=== PATIENT | male | born 1980 | race Caucasian/White ===

== ENCOUNTER 2021-09-19 09:52 | Emergency (ER) | payer OTHER, SELFPAY ==
[2021-09-19 11:05] LABS: Absolute Lymphocytes (CBC) 1.2 K/uL (0.7-4.9); Basophils % 0.4 % (0-1.3); Hematocrit 45.6 % (39.6-49.0); Lymphocytes % 18.9 % (15.3-44.8); MPV 7.9 fL (7.6-11.3); RBC Red Blood Cell Count 5.13 M/uL (4.33-5.43)
[2021-09-19 11:28] LABS: ALT/SGPT 41 U/L (12-78); AST/SGOT 10 U/L (15-37); Albumin 4.2 g/dL (3.4-5.0); Alkaline Phosphatase 71 U/L (45-117); BUN Blood Urea Nitrogen 17 mg/dL (7-18); Bicarbonate 26 mmol/L (21-32); Bilirubin Direct 0.2 mg/dL (0-0.2); Bilirubin Total 0.7 mg/dL (0.2-1.0); Glucose Level 100 mg/dL (74-106); Lipase 99 U/L (73-393); Potassium 3.8 mmol/L (3.5-5.1); Protein, Total 8.2 g/dL (6.4-8.2); Sodium Level 140 mmol/L (136-145)
--- NOTE | 2021-09-19 12:04 | RAD REPORT ---
EXAM DESCRIPTION: CTAbdomen Pelvis W Contrast - 09/19/2021 11:50 am CLINICAL HISTORY: bloody stools COMPARISON: No comparisons TECHNIQUE: CT of the abdomen and pelvis was performed. All CT scans are performed using dose optimization technique as appropriate and may include automated exposure control or mA/KV adjustment according to patient size. FINDINGS: Lower chest: No acute abnormality. Liver: No acute abnormality or suspicious lesions. Biliary: No biliary ductal dilatation. Stomach: No significant focal abnormality. Duodenum: No significant focal abnormality. Pancreas: No significant abnormality. Spleen: No significant abnormality. Adrenal: No suspicious lesions. Kidney/ureter: No hydronephrosis. No renal calculi. Retroperitoneum: No retroperitoneal adenopathy. Vascular: No aneurysm. Bowel: No significant focal abnormality. Normal appendix. Peritoneum: No ascites or free air. Bladder: Grossly unremarkable. Reproductive: No adnexal masses. Bones: No acute fracture. Other: n/a IMPRESSION: No acute intra-abdominal or pelvic finding.
--- NOTE | 2021-09-19 12:19 | EDPHYS ---
Physician Documentation [facility] Name: Boris Ramirez Age: 40 yrs Sex: Male : 1980 Arrival Date: 09/19/2021 Time: 09:56 Bed 5 Private MD: ED Physician Jay Temple HPI: 09/19 10:30 This 40 yrs old Male presents to ER via Ambulatory with complaints of Bloody Stools. [facility] 10:30 The patient presents to the emergency department with bleeding from the rectum/anus. jmm Onset: The symptoms/episode began/occurred gradually, 3 day(s) ago. Modifying factors: The symptoms are alleviated by nothing, The symptoms are aggravated by nothing. . 10:30 Associate signs and symptoms: Pertinent positives: lower GI bleeding, Pertinent jmm negatives: fever. 10:30 This is a 40-year-old male with no known chronic medical condition presents emerged [facility] department with complaints of diarrhea beginning approximately 3 days ago with intermittent episodes of blood in his stool. Denies weakness or fatigue. Patient denies fever. Currently states his symptoms have resolved. Patient works on a boat needs clearance.. Historical: - Allergies: 10:19 No Known Allergies; jl7 - Home Meds: 10:19 None [Active]; jl7 - PMHx: 10:19 None; jl7 - Immunization history:: Client reports having NOT received the Covid vaccine. - Social history:: Smoking status: unknown. ROS: 10:30 Constitutional: Negative for fever, chills, and weight loss, Cardiovascular: Negative jmm for chest pain, palpitations, and edema, Respiratory: Negative for shortness of breath, cough, wheezing, and pleuritic chest pain. 10:30 Abdomen/GI: Positive for diarrhea. 10:30 All other systems are negative. Exam: 10:30 Constitutional: This is a well developed, well nourished patient who is awake, alert, jmm and in no acute distress. Head/Face: atraumatic. Eyes: EOMI, no conjunctival erythema appreciated ENT: Moist Mucus Membranes Neck: Trachea midline, Supple Chest/axilla: Normal chest wall appearance and motion. Cardiovascular: Regular rate and rhythm. No edema appreciated Respiratory: Normal respirations, no respiratory distress appreciated 10:30 Back: Normal ROM Skin: General appearance color normal MS/ Extremity: Moves all extremities, no obvious deformities appreciated, no edema noted to the lower extremities Neuro: Awake and alert, normal gait Psych: Behavior is normal, Mood is normal, Patient is cooperative and pleasant 10:30 Abdomen/GI: Inspection: abdomen appears normal, Bowel sounds: normal, Palpation: abdomen is soft and non-tender, in all quadrants. Vital Signs: 10:16 BP 147 / 103; Pulse 77; Resp 15; Temp 98.1(O); Pulse Ox 98% on R/A; Weight 85 kg (R); jl7 Height 6 ft. 1 in. (187 cm) (R); Pain 0/10; 11:00 BP 146 / 80; Pulse 96; Resp 18 S; Temp 98.1(O); Pulse Ox 96% on R/A; Pain 0/10; al4 11:56 BP 141 / 93; Pulse 71; Resp 18; Pulse Ox 99% ; Pain 0/10; al4 10:16 Body Mass Index 24.31 (85.00 kg, 187 cm) 7 MDM: 10:30 Patient medically screened. [facility] 12:18 Data reviewed: vital signs, nurses notes. Counseling: I had a detailed discussion with hasmukh the patient and/or guardian regarding: the historical points, exam findings, and any diagnostic results supporting the discharge/admit diagnosis, lab results, radiology results, the need for outpatient follow up, to return to the emergency department if symptoms worsen or persist or if there are any questions or concerns that arise at home. ED course: Patient is alert nontoxic in appearance in the ED. No abdominal pain on physical exam. Labs unremarkable. Patient advised to follow-up with gastroenterology for further evaluation otherwise given strict return precautions. Patient understood agrees plan of care.. 09/19 10:30 Order name: Basic Metabolic Panel; Complete Time: 11:37 [facility] 09/19 10:30 Order name: CBC with Diff; Complete Time: 11:10 [facility] 09/19 10:30 Order name: Hepatic Function; Complete Time: 11:37 [facility] 09/19 10:30 Order name: Lipase; Complete Time: 11:37 [facility] 09/19 10:30 Order name: IV Saline Lock; Complete Time: 11:06 [facility] 09/19 10:30 Order name: CT Abd/Pelvis - IV Contrast Only; Complete Time: 12:07 [facility] 09/19 10:30 Order name: Labs collected and sent; Complete Time: 11:06 jm Administered Medications: No medications were administered Disposition: 09/20 07:48 Co-signature as Attending Physician, Jay Temple MD I agree with the assessment and sp3 plan of care. Disposition Summary: 09/19/21 12:19 Discharge Ordered Location: Home jmm Condition: Stable jmm Diagnosis - Diarrhea, unspecified jmm - GI Bleed/ Gastrointestinal hemorrhage, unspecified jmm Followup: jmm - With: Ruby Ellison MD - When: 2 - 3 days - Reason: Recheck today's complaints, Continuance of care, Re-evaluation by your physician Discharge Instructions: - Discharge Summary Sheet jmm - Food Choices to Help Relieve Diarrhea, Adult jmm - Diarrhea, Adult jmm - Gastrointestinal Bleeding jm Forms: - Medication Reconciliation Form jmm - Thank You Letter jmm - Antibiotic Education jmm - Prescription Opioid Use jmm Signatures: Dispatcher [employer] EDGet Estrada PA PA jmm Leal, Jahala RN RN jl7 Jay Temple MD MD sp3
--- NOTE | 2021-09-19 12:19 | ER ---
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 It occurred 2 weeks ago as well. Pt reports having diarrhea both times, symptoms have resolved at this time. Coronavirus screen: At this time, the client does not indicate any symptoms associated with coronavirus-19. Ebola Screen: No symptoms or risks identified at this time. Initial Sepsis Screen: Does the patient meet any 2 criteria? No. Patient's initial sepsis screen is negative. Does the patient have a suspected source of infection? No. Patient's initial sepsis screen is negative. Risk Assessment: Do you want to hurt yourself or someone else? Patient reports no desire to harm self or others. Onset of symptoms is unknown. 10:16 Method Of Arrival: Ambulatory jl7 10:16 Acuity: SHEBA 3 jl7 Triage Assessment: 10:19 General: Appears in no apparent distress. uncomfortable, Behavior is calm, cooperative, jl7 appropriate for age. Pain: Denies pain. GI: Reports diarrhea, bloody stool, RESOLVED. Historical: - Allergies: 10:19 No Known Allergies; jl7 - Home Meds: 10:19 None [Active]; jl7 - PMHx: 10:19 None; jl7 - Immunization history:: Client reports having NOT received the Covid vaccine. - Social history:: Smoking status: unknown. Screenin:19 Abuse screen: Denies threats or abuse. Nutritional screening: No deficits noted. al4 Tuberculosis screening: No symptoms or risk factors identified. Fall Risk No secondary diagnosis (0 pts). IV access (20 points). Ambulatory Aid- None/Bed Rest/Nurse Assist (0 pts). Gait- Normal/Bed Rest/Wheelchair (0 pts) Mental Status- Oriented to own ability (0 pts). Total Collins Fall Scale indicates No Risk (0-24 pts). Assessment: 11:03 General: Appears in no apparent distress. comfortable, Behavior is calm, cooperative, al4 appropriate for age. Pain: Denies pain. Neuro: Level of Consciousness is awake, alert, obeys commands, Oriented to person, place, time, situation, Appropriate for age. Cardiovascular: Heart tones present Capillary refill < 3 seconds Patient's skin is warm and dry. Respiratory: Airway is patent Respiratory effort is even, unlabored, Respiratory pattern is regular, symmetrical. GI: Abdomen is flat, non-distended, Bowel sounds present X 4 quads. Abd is soft and non tender X 4 quads. Reports bloody stool. : No signs and/or symptoms were reported regarding the genitourinary system. EENT: No signs and/or symptoms were reported regarding the EENT system. Derm: No signs and/or symptoms reported regarding the dermatologic system. Musculoskeletal: No signs and/or symptoms reported regarding the musculoskeletal system. 12:30 Reassessment: No changes from previously documented assessment. Patient and/or family al4 updated on plan of care and expected duration. Pain level reassessed. Patient is alert, oriented x 3, equal unlabored respirations, skin warm/dry/pink. Vital Signs: 10:16 BP 147 / 103; Pulse 77; Resp 15; Temp 98.1(O); Pulse Ox 98% on R/A; Weight 85 kg (R); jl7 Height 6 ft. 1 in. (187 cm) (R); Pain 0/10; 11:00 BP 146 / 80; Pulse 96; Resp 18 S; Temp 98.1(O); Pulse Ox 96% on R/A; Pain 0/10; al4 11:56 BP 141 / 93; Pulse 71; Resp 18; Pulse Ox 99% ; Pain 0/10; al4 10:16 Body Mass Index 24.31 (85.00 kg, 187 cm) jl7 ED Course: 09:56 Patient arrived in ED. mr 10:19 Triage completed. jl7 10:19 Arm band placed on right wrist. jl7 10:23 Get Thompson PA is PHCP. [facility] 10:23 Jay Temple MD is Attending Physician. m 10:24 Enriqueta Falcon, RAHUL is Primary Nurse. tw2 10:25 Jesus Morales is Primary Nurse. al4 10:45 Missed attempt(s): 20 gauge in right antecubital area. Bleeding controlled, band aid al4 applied, catheter tip intact. 10:50 Inserted saline lock: 20 gauge in right antecubital area, using aseptic technique. al4 Blood collected. 11:16 Placed in gown. Bed in low position. Call light in reach. Side rails up X 1. Pulse ox al4 on. NIBP on. Door closed. Noise minimized. Head of bed elevated. 11:50 CT Abd/Pelvis - IV Contrast Only In Process Unspecified. EDMS 12:18 Ruby Ellison MD is Referral Physician. [facility] 12:33 No provider procedures requiring assistance completed. IV discontinued, intact, al4 bleeding controlled, No redness/swelling at site. Pressure dressing applied. Administered Medications: No medications were administered Outcome: 12:19 Discharge ordered by . [facility] 12:33 Discharged to home ambulatory, with friend. al4 12:33 Condition: stable 12:33 Discharge instructions given to patient, friend, Instructed on discharge instructions, Demonstrated understanding of instructions. 12:36 Patient left the ED. al4 Signatures: Dispatcher [employer] EDMS Get Thompson PA PA jmm Rivera, Mary Enriqueta Falcon, RN RN tw2 Grecia Hogue, RN RN jl7 Isma Keith RN RN Jesus Macario al4 Corrections: (The following items were deleted from the chart) 11:01 10:50 Missed attempt(s): 20 gauge in right antecubital area. al4 al4 11:03 10:50 Inserted saline lock: 20 gauge Blood collected. al4 al4 11:03 10:45 Missed attempt(s): 20 gauge in right antecubital area. al4 al4 11:25 11:03 GI: Bowel sounds present X 4 quads. Abd is soft and non tender X 4 quads. al4 jd3 11:27 11:03 GI: Bowel sounds present X 4 quads. Abd is soft and non tender X 4 quads. jd3 al4 11:28 11:00 BP 146 / 80; Pulse 18bpm; Resp 96bpm; Spontaneous; Pulse Ox 96% RA; Temp 98.1F al4 Oral; Pain 0/10; al4
[2021-09-19 12:44] VITALS: TEMP 98.1
[2021-09-19 12:47] VITALS: BP 141/93; O2SAT 99
== END 2021-09-19 12:36 | disposition home or self-care (01) ==
LOC: ER 09:52
DX: R19.7 Diarrhea, unspecified (principal); K62.5 Hemorrhage of anus and rectum
CPT/HCPCS: 85025; 80048; 36415; 80076; 83690; 74177; 99284; Q9967